=== PATIENT | female | born 1985 | race Caucasian/White ===

== ENCOUNTER 2017-08-01 21:41 | Emergency (ER) | payer MEDICAID ==
[~2017-08-01] VITALS: Ht 160 cm; Wt 66.5 kg
[~2017-08-01 21:41] MED LIST: PREN1TAB49 PO
[2017-08-01 21:43] VITALS: Ht 160 cm; Wt 66.5 kg
[2017-08-02] MEDS ORDERED: ACETAMINOPHEN 325 MG TAB PO STA (00:22)
--- NOTE | 2017-08-02 00:22 | ERD ---
ER Documentation Chief Complaint Date/Time DATE: 08/02/17 TIME: 00:21 Chief Complaint 8 wks , vag bleeding HPI This 32-year-old female presents to emergency department reporting 8 week with vaginal spotting, bleeding with wiping after using bathroom. Not needing a ck-pad, -00 ROS All systems reviewed and are negative except as per history of present illness. Medications Home Meds Reported Medications Vits W-Ca,Fe,Fa(<1MG) () 1 Tab Tablet, 1 TAB PO 02/06/13 Allergies Allergies: Coded Allergies: No Known Allergy (Verified , 12/13/09) PMhx/Soc Medical and Surgical Hx: pt denies Medical Hx, pt denies Surgical Hx Hx Alcohol Use: No Hx Substance Use: No Hx Tobacco Use: No Smoking Status: Never smoker Physical Exam Vitals Vital Signs Date Time Temp Pulse Resp B/P Pulse Ox O2 Delivery O2 Flow Rate FiO2 08/02/17 03:04 97.5 74 22 114/74 99 Room Air 08/01/17 21:43 98.7 72 20 135/77 97 Physical Exam Const: Well-nourished well-appearing well-hydrated no acute distress Head: Atraumatic Eyes: Normal Conjunctiva, PERRLA, EOMI ENT: Normal External Ears, Nose and Mouth.Mucous membranes moist Neck: Resp: Respirations even and unlabored no respiratory distress Cardio: Abd: Abdomen soft nontender no pelvic tenderness no CVA tenderness Skin: No petechiae or rashes Back: Ext: Neur: Awake and alert Psych: Normal Mood and Affect Result Diagram: 08/02/17 0031 Results 24 hrs Laboratory Tests Test 08/02/17 00:29 08/02/17 00:31 Urine Color YELLOW Urine Clarity SLIGHTLY CLOUDY Urine pH 5.0 Urine Specific Panther 1.028 Urine Ketones NEGATIVEmg/dL Urine Nitrite NEGATIVEmg/dL Urine Bilirubin NEGATIVEmg/dL Urine Urobilinogen 2+mg/dL Urine Leukocyte Esterase NEGATIVELeu/ul Urine Microscopic RBC 2/HPF Urine Microscopic WBC 2/HPF Urine Squamous Epithelial Cells FEW/HPF Urine Mucus FEW/HPF Urine Hemoglobin 2+mg/dL Urine Glucose NEGATIVEmg/dL Urine Total Protein NEGATIVEmg/dl White Blood Count 10.510^3/ul Red Blood Count 4.4610^6/ul Hemoglobin 14.1g/dl Hematocrit 39.6% Mean Corpuscular Volume 88.8fl Mean Corpuscular Hemoglobin 31.6pg Mean Corpuscular Hemoglobin Concent 35.6g/dl Red Cell Distribution Width 12.0% Platelet Count 19083^3/UL Mean Platelet Volume 11.1fl Neutrophils % 45.5% Lymphocytes % 43.3% Monocytes % 8.7% Eosinophils % 1.5% Basophils % 0.7% Nucleated Red Blood Cells % 0.0/100WBC Neutrophils # (Manual) 4.810^3/ul Lymphocytes # 4.610^3/ul Monocytes # 0.910^3/ul Eosinophils # 0.210^3/ul Basophils # 0.110^3/ul Nucleated Red Blood Cells # 0.010^3/ul Beta HCG, Quantitative 4834.3mIU/ml Current Medications Medications (Trade) Dose Ordered Sig/Alfred Route PRN Reason Start Time Stop Time Status Last Admin Dose Admin Acetaminophen (Tylenol Tab) 650 mg ONCE STAT PO 08/02/17 00:22 08/02/17 00:24 DC 08/02/17 00:32 Interpretation text: WBCs not elevated, beta hCG appropriate for gestational age no evidence of anemia, Urinalysis negative for evidence of infection no leukocytosis or nitrates Procedures/MDM PROCEDURE: US OB. CLINICAL INDICATION: Vaginal bleeding. Clinical estimated gestational age is 7 weeks 5 days with estimated date of delivery 03/15/2018 TECHNIQUE: Transabdominal and transvaginal views of the pelvis are available for review. COMPARISON: No prior studies are available for comparison. FINDINGS: [place]-rump length: 0.56 cm heart rate: 80 beats per minute Ultrasound estimated gestational age: 0403/26/2018 Estimated date of delivery: 03/15/2018 There is a 1.7 cm oval area of decreased echogenicity consistent with subserosal fibroid arising from the posterior fundus to the left of midline. There is a 1.7 cm oval area of decreased echogenicity which could represent a submucosal fibroid in the anterior fundus to the left of midline. There is a 5 mm area of decreased echogenicity suggestive of a small subchorionic bleeding adjacent to the gestational sac. The ovaries are unremarkable. No adnexal mass or free intrapelvic fluid is seen. IMPRESSION: Single live intrauterine with an estimated gestational age of 6 weeks 2 days based on ultrasound measurements. heart rate equals 80 beats per minute. This could be due to early gestational age. Suggestive of a small subchorionic bleed. Findings suggestive of uterine fibroids noted above. Please see above. Follow-up is recommended. Electronically viewed and signed by .Ronak Rivas MD, on 08/02/2017 02:23 Departure Diagnosis: Primary Impression: Vaginal bleeding in patient at less than 20 weeks gestation Condition: Good Patient Instructions: Bleeding During Early Referrals: [employer] REFERRAL LIST Additional Instructions: Thank you for for coming to [facility] for your care today. Please ask your nurse or provider if you have questions about your care today and do not leave until all your questions have been answered. Please use any medications given as directed and follow-up with your doctor (or the doctor you were referred to) in the next 2-3 days. If you do not have a primary care doctor you may follow up at the [facility] (listed below). You may also use motrin and tylenol as needed for fever and/or pain unless instructed otherwise by your provider or nurse. Indications for more urgent follow-up have been discussed, but you may return to the Emergency Department at ANY time for any worrisome or worsening symptoms. If you have abdominal pain, please know that no test or exam you received is perfect and you should follow up within 8 hours for continued pain. If you had any imaging studies today, such as an X-Ray or CT Scan, these studies will be reviewed later by a radiologist. You will be called if there are important findings that were not identified today, so make sure the contact information you provided at registration is correct. If you received any narcotic pain control medicine today, such as Vicodin, Morphine or Dilaudid, your coordination and judgment may be affected for a number of hours. Please do not drive or operate heavy machinery, and you may want someone to assist you at home. If you were given a prescription for narcotic medication, be aware that it is very addictive- use sparingly and only if necessary. CHRISTOPHER CEJA Aug 02, 2017 00:22
[2017-08-02 00:52] LABS: BASOPHIL # 0.1 10^3/ul (0.0-0.1); BASOPHILS % 0.7 % (0.0-2.0); EOSINOPHILS # 0.2 10^3/ul (0.0-0.5); EOSINOPHILS % 1.5 % (0.0-7.0); HEMATOCRIT 39.6 % (37.0-47.0); HEMOGLOBIN 14.1 g/dl (12.0-16.0); LYMPHOCYTES # 4.6 10^3/ul (0.8-2.9); LYMPHOCYTES % 43.3 % (15.0-51.0); MEAN CORPUSCULAR HEMOGLOBIN 31.6 pg (29.0-33.0); MEAN CORPUSCULAR HGB CONC 35.6 g/dl (32.0-37.0); MEAN CORPUSCULAR VOLUME 88.8 fl (82.0-101.0); MEAN PLATELET VOLUME 11.1 fl (7.4-10.4); MONOCYTE # 0.9 10^3/ul (0.3-0.9); MONOCYTES % 8.7 % (0.0-11.0); NEUTROPHILS % 45.5 % (39.0-77.0); PLATELET COUNT 306 10^3/UL (140-415); RED BLOOD COUNT 4.46 10^6/ul (4.20-5.40); WHITE BLOOD COUNT 10.5 10^3/ul (4.8-10.8)
[2017-08-02 00:57] LABS: ADD UMIC YES; UR ASCORBIC ACID NEGATIVE (NEGATIVE); UR BILIRUBIN (Dip) NEGATIVE (NEGATIVE); UR BLOOD (Dip) 2+ mg/dL (NEGATIVE); UR CLARITY SLIGHTLY CLOUDY (CLEAR); UR COLOR YELLOW (YELLOW); UR GLUCOSE (Dip) NEGATIVE (NEGATIVE); UR KETONES (Dip) NEGATIVE (NEGATIVE); UR LEUKOCYTE ESTERASE (Dip) NEGATIVE Leu/ul (NEGATIVE); UR MUCUS FEW /HPF (NONE SEEN); UR NITRITE (Dip) NEGATIVE (NEGATIVE); UR RBC 2 /HPF (0-5); UR SPECIFIC GRAVITY (Dip) 1.028 (1.003-1.030); UR SQUAMOUS EPITHELIAL CELL FEW /HPF (FEW); UR TOTAL PROTEIN (Dip) NEGATIVE (NEGATIVE); UR UROBILINOGEN (Dip) 2+ mg/dL (NEGATIVE)
--- NOTE | 2017-08-02 02:23 | RADRPT ---
PROCEDURE: US OB. CLINICAL INDICATION: Vaginal bleeding. Clinical estimated gestational age is 7 weeks 5 days with estimated date of delivery 03/15/2018 TECHNIQUE: Transabdominal and transvaginal views of the pelvis are available for review. COMPARISON: No prior studies are available for comparison. FINDINGS: [place]-rump length:0.56 cm heart rate:80 beats per minute Ultrasound estimated gestational age:0403/26/2018 Estimated date of delivery: 03/15/2018 There is a 1.7 cm oval area of decreased echogenicity consistent with subserosal fibroid arising fro m the posterior fundus to the left of midline. There is a 1.7 cm oval area of decreased echogenicit y which could represent a submucosal fibroid in the anterior fundus to the left of midline. There is a 5 mm area of decreased echogenicity suggestive of a small subchorionic bleeding adjacent to the g estational sac. The ovaries are unremarkable. No adnexal mass or free intrapelvic fluid is seen. IMPRESSION: Single live intrauterine with an estimated gestational age of 6 weeks 2 days based on ultr asound measurements. heart rate equals 80 beats per minute. This could be due to early gesta tional age. Suggestive of a small subchorionic bleed. Findings suggestive of uterine fibroids noted above. Please see above. Follow-up is recommended. RPTAT: HJES .Ronak Rivas MD, Date Time Electronically viewed and signed by .Ronak Rivas MD, on 08/02/2017 02:23 .S/
[2017-08-02 03:04] VITALS: BP 114/74; PULSE 74; RESP 22; TEMP 97.5
== END 2017-08-02 03:10 | disposition home or self-care (01) ==
LOC: FTE 21:41
DX: O20.9 Hemorrhage in early pregnancy, unspecified (principal); R10.2 Pelvic and perineal pain; Z3A.01 Less than 8 weeks gestation of pregnancy
CPT/HCPCS: 76801; 76817; 81001; 84702; 85025; Z7502; Z7610

== ENCOUNTER 2018-05-12 09:51 | Outpatient (CLI) | END 2018-05-12 16:00 | disposition home or self-care (01) ==

== ENCOUNTER 2018-05-13 11:27 | Outpatient (CLI) | END 2018-05-13 15:00 | disposition home or self-care (01) ==

== ENCOUNTER 2018-06-02 17:50 | Inpatient (IN) | END 2018-06-05 18:41 | disposition home or self-care (01) | DRG 775 ==